=== PATIENT | male | born 1950 | race Caucasian/White ===

== ENCOUNTER 2017-01-24 12:28 | Emergency (ER) | payer SELFPAY ==
[~2017-01-24] VITALS: Ht 180.3 cm; Wt 88.8 kg
[~2017-01-24 12:28] MED LIST: ASPI81TA21 PO; GLUCTAB PO; LANTUS2P SC; LISI-360 PO
[2017-01-24 12:43] VITALS: BP 156/97; PULSE 88; RESP 20; TEMP 97.9; O2SAT 98
[2017-01-24] MEDS ORDERED: SODIUM CHLOR 0.9% 1000 ML INJ 1,000 ML IV ONE ×3 (12:50→14:15)
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
[2017-01-24] MEDS ORDERED: INSULIN HUMAN REGULAR 1,000 UNITS/10 ML VIAL SQ ONE ×2 (13:00→14:00)
[2017-01-24] MEDS ORDERED: SODIUM CHLORIDE 0.9% FLUSH 10 ML FLUSH IVF PRN (13:00)
[2017-01-24] MEDS ORDERED: INSULIN HUMAN REGULAR 1,000 UNITS/10 ML VIAL IV PUSH ONE ×2 (13:00→14:00)
[2017-01-24 13:09] LABS: BLOOD GAS BASE EXCESS -1.1 mmol/L (-2-2); BLOOD GAS HCO3 23 mmol/L (22-26); BLOOD GAS METHEMOGLOBIN 1.3 % (0-2); BLOOD GAS O2 HGB SATURATION 94 % (90-100); BLOOD GAS OXYGEN CONTENT 18.4 Vol % (12.0-20.0); BLOOD GAS PCO2 38 mmHG (38-42); BLOOD GAS PO2 86 mmHG (61-120); BLOOD GAS TOTAL HGB 13.9 G/DL (12.0-16.0); CRITICAL VALUE NO; DRAW SITE RT RADIAL; FIO2 21 %; NUMBER OF ARTERIAL PUNCTURES 1; TEMP CORR TO 98.6
[2017-01-24 13:10] LABS: STAT YES; ULNAR PULSE PRESENT
[2017-01-24 13:10] LABS: AUTOMATED NEUTROPHIL # 6.4 TH/MM3 (1.8-7.7); BASOPHIL % 0.3 % (0.0-2.0); EOSINOPHIL # 0.3 TH/MM3 (0-0.4); EOSINOPHIL % 2.3 % (0.0-4.0); HEMATOCRIT 46.2 % (39.0-51.0); HEMO FLAGS DIFF FINAL; LYMPH % 31.4 % (9.0-44.0); LYMPHOCYTE # 3.4 TH/MM3 (1.0-4.8); MEAN CELL VOLUME 92.6 FL (80.0-100.0); MEAN CORPUSCULAR HEMOGLOBIN 29.6 PG (27.0-34.0); MONO % 7.1 % (0.0-8.0); NEUT % 58.9 % (16.0-70.0); PLATELET COUNT 456 TH/MM3 (150-450); RED BLOOD COUNT 4.99 MIL/MM3 (4.50-5.90); RED CELL DISTRIBUTION WIDTH 13.8 % (11.6-17.2); WHITE BLOOD COUNT 10.9 TH/MM3 (4.0-11.0)
[2017-01-24 13:14] LABS: CHLORIDE 90 MEQ/L (98-107); POTASSIUM 5.3 MEQ/L (3.5-5.1); SODIUM (NA) 130 MEQ/L (136-145)
[2017-01-24 13:17] LABS: ANION GAP 12 MEQ/L (5-15); BICARBONATE 28.1 MEQ/L (21.0-32.0)
[2017-01-24 13:18] LABS: BLOOD UREA NITROGEN 28 MG/DL (7-18)
[2017-01-24 13:20] LABS: ALT (GPT) 67 U/L (12-78); AST (GOT) 30 U/L (15-37); GLOMERULAR FILTRATION RATE 51 ML/MIN (>89)
[2017-01-24 13:22] LABS: TOTAL BILIRUBIN ADULT 0.5 MG/DL (0.2-1.0)
[2017-01-24 13:24] VITALS: RESP 18; O2SAT 97
[2017-01-24 13:31] LABS: BLOOD, URINE NEG (NEG); KETONE, URINE NEG (NEG); NITRITE,URINE NEG (NEG); PH, URINE 5.5 (5.0-8.5)
[2017-01-24 13:32] VITALS: BP 158/84; PULSE 88; RESP 18; O2SAT 97
[2017-01-24 13:38] LABS: GLUCOSE,URINE 1000 OR GREATER mg/dL (NEG); METHOD OF COLLECTION CLEAN CATCH; URINE COLOR STRAW (YELLW/STRAW)
[2017-01-24 13:39] LABS: COMMENT (UR) CULT NOT INDICATED; CULTURE IF INDICATED CULT NOT INDICATED; RBC, URINE 0-3 /hpf (0-3)
[2017-01-24 13:40] LABS: ALKALINE PHOSPHATASE 125 U/L (45-117); BETA-HYDROXYBUTYRATE 0.24 MMOL/L (0.00-0.39)
[2017-01-24] MEDS ORDERED: HUMUINJ5 SQ (14:03)
[2017-01-24] MEDS ORDERED: METF1000 PO (14:03)
--- NOTE | 2017-01-24 14:12 | RADHPO ---
EXAM DATE/TIME: 01/24/2017 13:20 [facility] COMPARISON: CHEST SINGLE AP, November 25, 2013, 5:17. INDICATIONS : Cough, elevated blood sugar MEDICAL HISTORY : Diabetes mellitus type II. SURGICAL HISTORY : None. ENCOUNTER: Initial ACUITY: 1 day PAIN SCORE: 0/10 LOCATION: Bilateral chest FINDINGS: Single AP view of the chest. Lung volumes are low. Mild bilateral lower lung zone opacity likely repr esenting atelectasis. Cardiomediastinal silhouette within normal limits. No evidence of pleural effus ion or pneumothorax. CONCLUSION: Low lung volumes with mild bilateral lung opacity likely representing atelectasis . Jose R Lemus MD on January 24, 2017 at 14:10 Board Certified Radiologist. This report was verified electronically.
[2017-01-24 14:15] VITALS: BP 160/75; PULSE 74; RESP 16; O2SAT 99
[2017-01-24 15:12] VITALS: BP 140/73; PULSE 76; RESP 20; O2SAT 96
[2017-01-25] MEDS ORDERED: NOVORP2 SQ (14:18)
== END 2017-01-24 16:18 | disposition home or self-care (01) ==
LOC: PHED 12:28
DX: E11.65 Type 2 diabetes mellitus with hyperglycemia (principal); I10 Essential (primary) hypertension; E78.00 Pure hypercholesterolemia, unspecified; Z79.4 Long term (current) use of insulin; Z79.82 Long term (current) use of aspirin; Z87.39 Personal history of other diseases of the musculoskeletal system and connective tissue; Z86.79 Personal history of other diseases of the circulatory system; Z87.19 Personal history of other diseases of the digestive system; Z87.448 Personal history of other diseases of urinary system; Z86.69 Personal history of other diseases of the nervous system and sense organs
CPT/HCPCS: 36600; 71010; 80053; 81001; 82010; 82805; 83690; 84484; 85025; 96360; 96361; 96372; 96374; 96376; 99284; J1815; J7030

== ENCOUNTER 2017-05-07 12:03 | Emergency (ER) | payer MEDICARE ==
[~2017-05-07] VITALS: Ht 180.3 cm; Wt 89.0 kg
[~2017-05-07 12:03] MED LIST changes: -ASPI81TA21 PO; -GLUCTAB PO; +HUMUINJ5 SQ; -LANTUS2P SC; -LISI-360 PO; +METF1000 PO; +NOVORP2 SQ
[2017-05-07 12:05] VITALS: BP 156/82; PULSE 103; RESP 18; TEMP 97.6; O2SAT 98
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
[2017-05-07 12:26] VITALS: BP 140/78; PULSE 96; RESP 18; O2SAT 96
[2017-05-07] MEDS ORDERED: SODIUM CHLOR 0.9% 1000 ML INJ 1,000 ML IV ONE ×3 (12:29→14:15)
[2017-05-07] MEDS ORDERED: SODIUM CHLORIDE 0.9% FLUSH 10 ML FLUSH IVF PRN (12:30)
[2017-05-07] MEDS ORDERED: INSULIN HUMAN REGULAR 1,000 UNITS/10 ML VIAL IV PUSH ONE (12:30)
[2017-05-07] MEDS ORDERED: ASPI81CH37 CHEW (12:31)
[2017-05-07] MEDS ORDERED: RED1CAP4 PO (12:32)
[2017-05-07] MEDS ORDERED: LISI10TA3 PO (12:32)
[2017-05-07] MEDS ORDERED: PRIL20TA2 PO (12:32)
[2017-05-07 12:36] VITALS: O2SAT 96
[2017-05-07 12:54] LABS: BLOOD GAS VENOUS BASE EXCESS 1.1 mmol/L (-2-2); BLOOD GAS VENOUS HCO3 26 mmol/L (22-26); BLOOD GAS VENOUS O2 CONTENT 9.7 Vol % (9.0-17.0); BLOOD GAS VENOUS O2 HGB SAT 48 % (70-76); BLOOD GAS VENOUS PCO2 49 mmHg (44-48); BLOOD GAS VENOUS PO2 30 mmHg (35-40); BLOOD GAS VENOUS pH 7.35 (7.360-7.400); CRITICAL VALUE NO; OXYGEN DEVICE ROOM AIR
[2017-05-07 12:55] LABS: DRAW SITE LAC; FIO2 21 %; STAT YES
[2017-05-07 13:15] LABS: BLOOD, URINE NEG (NEG); GLUCOSE,URINE 1000 OR GREATER mg/dL (NEG); KETONE, URINE NEG (NEG); NITRITE,URINE NEG (NEG)
[2017-05-07 13:16] LABS: CHLORIDE 95 MEQ/L (98-107); POTASSIUM 4.5 MEQ/L (3.5-5.1); SODIUM (NA) 130 MEQ/L (136-145)
[2017-05-07 13:19] LABS: ANION GAP 11 MEQ/L (5-15); BICARBONATE 24.5 MEQ/L (21.0-32.0); BLOOD UREA NITROGEN 32 MG/DL (7-18)
[2017-05-07 13:22] LABS: ALT (GPT) 78 U/L (12-78); AST (GOT) 31 U/L (15-37)
[2017-05-07 13:23] LABS: GLOMERULAR FILTRATION RATE 47 ML/MIN (>89)
[2017-05-07 13:24] LABS: TOTAL BILIRUBIN ADULT 0.3 MG/DL (0.2-1.0)
[2017-05-07 13:33] LABS: ALKALINE PHOSPHATASE 115 U/L (45-117)
[2017-05-07 13:37] LABS: COMMENT (UR) CULT NOT INDICATED; CULTURE IF INDICATED CULT NOT INDICATED; METHOD OF COLLECTION CLEAN CATCH; RBC, URINE 0-3 /hpf (0-3); SQUAMOUS EPITHELIAL CELL URINE 0-5 /hpf (0-5); URINE COLOR YELLOW (YELLW/STRAW)
[2017-05-07 13:39] LABS: BETA-HYDROXYBUTYRATE 0.21 MMOL/L (0.00-0.39)
[2017-05-07 13:42] LABS: AUTOMATED NEUTROPHIL # 8.6 TH/MM3 (1.8-7.7); BASOPHIL # 0.1 TH/MM3 (0-0.2); BASOPHIL % 0.6 % (0.0-2.0); EOSINOPHIL # 0.5 TH/MM3 (0-0.4); EOSINOPHIL % 3.6 % (0.0-4.0); LYMPH % 30.9 % (9.0-44.0); LYMPHOCYTE # 4.6 TH/MM3 (1.0-4.8); MEAN CELL VOLUME 89.7 FL (80.0-100.0); MEAN CORPUSCULAR HEMOGLOBIN 30.1 PG (27.0-34.0); MEAN CORPUSCULAR HGB CONC 33.5 % (32.0-36.0); MONO % 7.4 % (0.0-8.0); NEUT % 57.5 % (16.0-70.0); PLATELET COUNT 463 TH/MM3 (150-450); RED BLOOD COUNT 4.79 MIL/MM3 (4.50-5.90); RED CELL DISTRIBUTION WIDTH 13.1 % (11.6-17.2); WHITE BLOOD COUNT 14.9 TH/MM3 (4.0-11.0)
[2017-05-07 13:44] LABS: HEMO FLAGS DIFF FINAL
--- NOTE | 2017-05-07 13:52 | EKG ---
Date Performed: 05/07/2017 Time Performed: 12:36:06 PTAGE: 67 years EKG: Sinus rhythm INFERIOR MYOCARDIAL INFARCTION ABNORMAL ECG No significant change from prior electrocardiogram. PREVIOUS TRACING : 06/03/2016 21.04 DOCTOR: Evin Smith Interpretating Date/Time 05/07/2017 13:51:48
[2017-05-07] MEDS ORDERED: HUMA50IN SQ (14:34)
[2017-05-07] MEDS ORDERED: LANTUS2P SQ (14:34)
[2017-05-07 15:39] VITALS: BP 129/84
== END 2017-05-07 15:42 | disposition home or self-care (01) ==
LOC: PHED 12:03
DX: E11.65 Type 2 diabetes mellitus with hyperglycemia (principal); E86.0 Dehydration; N28.9 Disorder of kidney and ureter, unspecified; R94.31 Abnormal electrocardiogram [ECG] [EKG]; I25.2 Old myocardial infarction; Z79.4 Long term (current) use of insulin
CPT/HCPCS: 80053; 81001; 82010; 82805; 84484; 85025; 93005; 96361; 96374; 99284; J1815; J7030